=== PATIENT | female | born 1950 | race Caucasian/White ===

== ENCOUNTER → 2019-09-19 | Outpatient (CLI) | payer MEDICARE ==
--- NOTE | 2019-09-19 14:31 | XR ---
Left knee HISTORY: Left knee pain 2 views of left knee. Vascular calcifications are present. There is tricompartmental marginal spurring. Joint space loss pr esent at the patellofemoral joint and medial compartment. Alignment is maintained. Bone mineralizatio n is reduced. No fracture or dislocation. Additional soft tissue calcifications may represent phlebol iths and are indeterminate. IMPRESSION: Osteoarthritis. Additional findings above.
== END | disposition home or self-care (01) ==
LOC: RADXRYALE 11:04
PROVIDERS: ATTEND Internal Medicine
DX: M17.12 Unilateral primary osteoarthritis, left knee (principal); M25.862 Other specified joint disorders, left knee

== ENCOUNTER → 2022-07-14 | Outpatient (CLI) | payer MEDICARE ==
--- NOTE | 2022-07-14 12:06 | XR ---
The most echo spine HISTORY: Chronic pain down both hips and legs 5 views of lumbosacral spine, correlation to CT scan abdomen and pelvis 05/02/2014 Anterolisthesis grade 1 L4-5. Loss of disc height is present at intervertebral levels. Vacuum phenome non present at L4-5, mild anterolisthesis grade 1 L5-S1. Lumbar vertebral bodies show preserved heigh t. Bone mineralization is reduced. Sclerosis in the posterior elements is consistent with facet arthr opathy. Atherosclerotic vascular calcifications present in the aorta iliac distribution. No evident s pondylolysis. IMPRESSION: Degenerative disc disease, facet arthropathy, osteopenia.
== END | disposition home or self-care (01) ==
LOC: RADXRYALE 11:40
PROVIDERS: ATTEND Internal Medicine
DX: G57.03 Lesion of sciatic nerve, bilateral lower limbs (principal)
CPT/HCPCS: 72110

== ENCOUNTER → 2022-08-24 | Outpatient (CLI) | payer MEDICARE ==
--- NOTE | 2022-08-24 15:08 | MR ---
EXAMINATION TYPE: MR lumbar spine wo con DATE OF EXAM: 08/24/2022 COMPARISON: None HISTORY: Low back pain into legs Multiplanar multi echo imaging of the lumbar spine performed without contrast. There is a 5 mm anterior subluxation of L4 in relation L5. There is severe narrowing of the spinal ca nal at L4-5 due to facet arthropathy and subluxation deformity. There is degenerative disc space narr owing throughout the lumbar spine. There is posterior small disc herniations from L1 to L5. No compre ssion fracture. No lumbar paraspinal mass. No evidence of focal bone destruction. IMPRESSION: Severe spinal stenosis at L4-5 due to spondylolisthesis and facet arthropathy and small disc herniati on. Multilevel spondylotic changes.
== END | disposition home or self-care (01) ==
LOC: RADMRIMAIN 14:25
PROVIDERS: ATTEND Orthopaedic Surgery
DX: M48.061 Spinal stenosis, lumbar region without neurogenic claudication (principal); M43.16 Spondylolisthesis, lumbar region; M47.816 Spondylosis without myelopathy or radiculopathy, lumbar region; M51.36 Other intervertebral disc degeneration, lumbar region
CPT/HCPCS: 72148

== ENCOUNTER → 2022-11-05 | Outpatient (CLI) | payer MEDICARE | END | disposition home or self-care (01) | LOC: LABPAT 12:35 | PROVIDERS: ATTEND Orthopaedic Surgery | DX: Z01.812 Encounter for preprocedural laboratory examination (principal); Z22.322 Carrier or suspected carrier of Methicillin resistant Staphylococcus aureus; M48.061 Spinal stenosis, lumbar region without neurogenic claudication; M47.816 Spondylosis without myelopathy or radiculopathy, lumbar region | CPT/HCPCS: 86850; 86900; 86901; 87070 ==

== ENCOUNTER → 2023-03-24 | Outpatient (CLI) | payer MEDICARE ==
--- NOTE | 2023-03-24 11:51 | XR ---
EXAMINATION TYPE: XR ribs bilat w pa chest xray DATE OF EXAM: 03/24/2023 COMPARISON: NONE HISTORY: Pain TECHNIQUE: PA view of the chest and AP views of the bilateral ribs submitted FINDINGS: Slight atherosclerotic change aorta and there is multilevel hypertrophic degenerative yepez e of the spine. Chronic deformity of the posterolateral right sixth rib. There are surgical change in volving the lumbar spine. No acute displaced rib fracture. The lungs are clear. No pleural effusion or pneumothorax. Hyperinflation suggests COPD. There is a sm all nodule in the left upper lobe. IMPRESSION: 1. No acute displaced rib fracture 2. Small nodule left upper lobe measuring [address] of the chest
== END | disposition home or self-care (01) ==
LOC: RADXRYALE 11:11
PROVIDERS: ATTEND Internal Medicine
DX: S23.41XA Sprain of ribs, initial encounter (principal); R91.1 Solitary pulmonary nodule
CPT/HCPCS: 71111

== ENCOUNTER → 2024-02-27 | Outpatient (CLI) | payer MEDICARE | END | disposition home or self-care (01) | LOC: LABWHC1 09:45 | PROVIDERS: ATTEND Orthopaedic Surgery | DX: Z01.812 Encounter for preprocedural laboratory examination (principal); M16.12 Unilateral primary osteoarthritis, left hip; Z22.322 Carrier or suspected carrier of Methicillin resistant Staphylococcus aureus | CPT/HCPCS: 36415; 86850; 86900; 86901; 87070 ==

== ENCOUNTER 2024-03-07 05:33 | Observation (INO) | payer MEDICARE ==
--- NOTE | 2024-03-06 12:26 | HP ---
HISTORY AND PHYSICAL Surgery is scheduled for 03/07/2024. HISTORY OF PRESENT ILLNESS: Ashlee Crandall is a 73-year-old patient seen with symptomatic left hip osteoarthritis. We discussed options regarding treatment. She elected to proceed with direct anterior left total hip arthroplasty. Consent regarding the procedure was obtained. Clearance was provided by Dr. Varghese's office and Dr. Gabriel's office. PAST MEDICAL HISTORY: Trr-[id number]-jchngpprw diabetes, hypertension, hyperlipidemia. PAST SURGICAL HISTORY: Cholecystectomy, total knee arthroplasty. DAILY MEDICATIONS: 1. Actos. 2. Lipitor. 3. Lisinopril. 4. Metformin. 5. Xarelto. 6. Ozempic. ALLERGIES: Aspirin, Motrin. SOCIAL HISTORY: She denies tobacco use. PHYSICAL EVALUATION OF THE LEFT HIP: She has limited range of motion with pain. Positive hip impingement sign. Straight- leg raise is negative. Her distal neurovascular exam is intact. IMAGING STUDIES: Radiographs of left hip revealed severe osteoarthritic changes. IMPRESSION: 1. Left hip osteoarthritis. 2. Hypertension. 3. Hyperlipidemia. 4. Qhn-hbirlpm-sgqviymuu diabetes. PLAN: Direct anterior left total hip arthroplasty. MMODL / IJN: [id number] /
[~2024-03-07 05:33] MED LIST: TRANEXAMIC 1,000 MG/100ML-NACL 1,000 MG in SALINE 1 100ML.BAG IVPB PRN
[2024-03-07] MEDS ORDERED: fentaNYL (PF) 50 MCG/ML 2 ML AMP IVP PRN (06:33)
[2024-03-07] MEDS ORDERED: MIDAZOLAM 2 MG/2 ML VIAL IV PRN (06:33)
[2024-03-07] MEDS ORDERED: LIDOCAINE 1% (10MG/ML) FOR IV START INTRADERMA PRN (06:33)
[2024-03-07] MEDS ORDERED: HYDROmorphone 0.5 MG/0.5 ML SYRINGE IVP PRN ×3 (06:33→09:49)
[2024-03-07] MEDS: ACETAMINOPHEN TAB 500 MG TAB PO PRN (06:41)
[2024-03-07 07:06] LABS: Glucose,Whole Blood 170 mg/dL (70-110)
[2024-03-07] MEDS: DEXAMETHASONE SOD PHOSPHATE 4 MG/ML 1 ML VIAL IV ONE (07:07)
[2024-03-07] MEDS: ONDANSETRON 4 MG/2 ML VIAL IVP ONE (07:07)
[2024-03-07] MEDS: LACTATED RINGERS 1,000 ML IV SCH (07:08)
[2024-03-07] MEDS: IV FLUID CONTINUATION 1,000 ML IV ONE (07:09)
[2024-03-07] MEDS: MIDAZOLAM 2 MG/2 ML VIAL IVP ONE (07:16)
[2024-03-07] MEDS: fentaNYL (PF) 50 MCG/ML 2 ML AMP IVP ONE (07:17)
[2024-03-07] MEDS ORDERED: PROPOFOL 10 MG/ML 20 ML VIAL IV ONE (07:21)
[2024-03-07] MEDS ORDERED: LIDOCAINE 1% INJ 10MG/ML (20 ML MDV) ONE (07:21)
[2024-03-07] MEDS ORDERED: fentaNYL (PF) 50 MCG/ML 2 ML AMP ONE (07:21)
[2024-03-07] MEDS ORDERED: TRANEXAMIC 1,000 MG/100ML-NACL PREMIX BAG ONE (07:21)
[2024-03-07] MEDS ORDERED: ROPIVACAINE 5 MG/ML 30 ML VIAL ONE (07:21)
[2024-03-07] MEDS ORDERED: SUCCINYLCHOLINE CHLORIDE 200 MG/10 ML VIAL IV ONE (07:21)
[2024-03-07] MEDS ORDERED: KETAMINE HCL IN 0.9 % NACL 50 MG/5 ML SYRINGE ONE (07:21)
[2024-03-07] MEDS ORDERED: HYDROmorphone (PF) 1 MG/ML ONE (07:21)
--- NOTE | 2024-03-07 07:44 | P.ANPRN ---
Procedure Note - Anesthesia - Nerve Block Performed Left Carlo Single Time Out Performed: Yes Date of Procedure: 03/07/24 Procedure Start Time: 07:16 Procedure Stop Time: 07:22 Location of Patient: PreOp Indication: Acute Post-Operative Pain, Requested by Surgeon Sedation Type: Sedate with meaningful contact maintained Position: Supine Needle Types: Pajunk Needle Gauge: 21 Ultrasound used to visualize needle placement: Yes Ultrasound used to observe medication spread: Yes Injectate: 0.5% Ropivacaine (see comment for volume) (15 ml + 15 ml lidocaine 1% with epi 1/200 k) Blood Aspirated: No Pain Paresthesia on Injection Noted: No Resistance on Injection: Normal Image Stored and Saved: Yes Events: Uneventful and Well Tolerated
[2024-03-07] MEDS: ceFAZolin 1,000 MG in SODIUM CHLORIDE 0.9% 1,000 ML IRRIGATION ONE (07:57)
--- NOTE | 2024-03-07 09:44 | FL ---
EXAMINATION TYPE: FL guidance operating room, XR Hip Limited LT Intraoperative/procedural fluoroscopi c services were provided. Total fluoroscopy time is 1 minute 19 seconds seconds with a total of 8 sub mitted images to PACS. Please see the operative/procedural note for further details. DAP: 33.435 Gycm2
--- NOTE | 2024-03-07 09:48 | P.OP ---
Date of Procedure: 03/07/24 Preoperative Diagnosis: Left hip osteoarthritis Postoperative Diagnosis: Left hip osteoarthritis Procedure(s) Performed: Direct anterior left total hip arthroplasty Implants: 1. DePuy Corail 125 degree standard collar size 13 press-fit femoral stem 2. DePuy Tob[place]anna 50 mm press-fit acetabular shell 3. DePuy bi-mentum altrx liner 43/22 4. DePuy articular lease femoral head 12/14 taper +4 5. DePuy [place] dual mobility liner 50/43 Anesthesia: ELIANEA Surgeon: Robbie Adams It Audit Manager #1: Davis Lorenzo Estimated Blood Loss (ml): 65 Pathology: none sent Condition: stable Disposition: PACU Indications for Procedure: 73-year-old patient seen with symptomatic left hip osteoarthritis. After treatment options were discussed, she elected to proceed with direct anterior left total hip arthroplasty. Operative Findings: See description of procedure Description of Procedure: The patient was taken to the operative suite. Patient underwent a general anesthetic by the department of anesthesia. Patient was then transferred to the [place] table. Patient was given preoperative IV antibiotics and TXA. Both lower extremities were placed in standard leg spars. The hip was then prepped and draped in the normal sterile orthopedic fashion. A standard anterior incision was made beginning 3 cm lateral and 1 cm distal to the ASIS extending 10 cm. Dissection was then carried down through the subcutaneous soft tissues down to the fascia overlying the tensor fascia tanya. An incision was now made through the fascia. Careful dissection was taken down exposing the tensor fascia tanya muscle. A Cobra retractor was now placed along the medial femoral neck and a second one along the lateral femoral neck. The venous circumflex vessels were now identified, cauterized and clipped. We identified the anterior hip capsule. An incision was made through the hip capsule along the lateral border. I performed a partial anterior capsulectomy. Retractors were now placed around the femoral neck itself. A femoral neck cut was now made with a sagittal saw. It was completed with an osteotome at the lateral neck area. The femoral head was now removed without difficulty. The extremity was now rotated to 60 of external rotation. It was locked in position. Residual labrum was now debrided out. Serial reaming was performed of the acetabulum while David CUNNINGHAM assisted holding an anterior retractor for exposure. Once we reached the appropriate size and a trial was position and fit nicely. The appropriate size was now chosen opened and made available. It was introduced into the acetabulum without difficulty. The C-arm/fluoroscopy was now brought into the operative field. We made sure we had a true AP pelvic view. We now under direct C- arm/fluoroscopy introduced into the acetabular component with appropriate version and inclination. I held the cup in appropriate position MARISA Moss malleted the cup in position. It was not sticking. I pulled the cup out. I now chose a multihole cup. The acetabular cup was now placed back into the acetabulum. I now drilled multiple holes in introduced multiple 6.5 cancellous screws which had good bite and purchase. We confirmed this on intraoperative fluoroscopic imaging. We now placed our by mentum liner in anticipation of a dual mobility hip given her significant multilevel lumbar fusion. At this point retractors were removed. The extremity was now placed into 130 external rotation with no traction. The leg was now dropped to the ground and adducted. Appropriate retractors were now positioned along the proximal femur. We also placed our femoral look into position. Additional capsular releasing was performed to gain access to the proximal femur. We now used a box osteotome. A canal finder was now utilized. Serial broaching was now performed with the assistance of Davis CUNNINGHAM tapping the broaches down with a mallet while held the broach in appropriate rotation and position. I noted his the posterior aspect of the proximal femur was very very soft and I was concerned regarding a possible future fracture there. I decided to prophylactically place a cable around this area. I placed a cable on the proximal calcar secured and clipped it. We now dropped leg down and resumed our broaching. I did use a canal reamer again given that posterior proximal cortex was soft and wanted to avoid any excessive broaching. I resumed broaching. This was done until we reached the appropriate size with good overall rotational stability. Appropriate calcar planing was performed. A trial head/neck was placed into position. The hip was now reduced. The C-arm/fluoroscopy was brought back into the operative field. A spot film was obtained of the nonoperative hip. A spot film was obtained of the trial components. Overlays were performed, we noted good overall alignment and positioning for determining leg length. The C-arm/fluoroscopy was pulled back. Retractors were repositioned and the hip was dislocated. The leg was again taken down to the ground and adducted. Appropriate retractors were repositioned as well as the femoral hook. All trial components were removed. The femoral implant was opened along with the femoral head. The femoral implant was introduced on the appropriate handle into our pre-broached area. I held the component position while Davis CUNNINGHAM used a mallet to seat the femoral component. The femoral component was now noted to be well seated and stable.. The dual mobility femoral head was introduced with good positioning and fixation noted. Retractors were now removed. The hip was now reduced. There appeared be good positioning of the hip confirmed on intraoperative fluoroscopy. Spot films were obtained to document this. A second gram of TXA was given. The deep and superficial soft tissues were infiltrated with local analgesic. Bipolar cautery had been utilized intermittently through the procedure for hemostasis. The wound was irrigated copiously with pulse lavage mechanical irrigation. The fascia was repaired with Vicryl suture. The subcutaneous soft tissues were repaired in layers with Vicryl suture. The skin was approximated with pernio/Dermabond. Sterile dressings were applied. Patient was then awakened, transferred to a bed and taken to recovery in stable condition. Davis CUNNINGHAM assisted with the complex procedure.
[2024-03-07] MEDS ORDERED: HYDROcodone/APAP 5-325MG 1 EACH TAB PO PRN (09:49)
[2024-03-07] MEDS ORDERED: ONDANSETRON 4 MG/2 ML VIAL IVP PRN (09:49)
[2024-03-07] MEDS ORDERED: HYDROcodone/APAP 7.5-325MG 1 EACH TAB PO PRN (09:49)
[2024-03-07] MEDS ORDERED: NALOXONE 0.4 MG/ML 1 ML VIAL IV PRN (09:49)
[2024-03-07] MEDS: Pre Op ABX Message 1 EACH MISC MISCELLANE ONE (11:06)
[2024-03-07] MEDS: SODIUM CHLORIDE 0.9% 1,000 ML IV SCH (11:06)
[2024-03-07 11:27] LABS: Glucose,Whole Blood 235 mg/dL (70-110)
[2024-03-07] MEDS: INSULIN ASPART (NovoLOG) 100 UNIT/ML VIAL SQ ONE (11:35)
[2024-03-07] MEDS ORDERED: traMADol 50 MG TAB PO SCH (13:00)
[2024-03-07] MEDS ORDERED: ALBUTEROL NEBULIZED 2.5 MG/3 ML INHALATION PRN (13:34)
[2024-03-07] MEDS ORDERED: DEXTROSE 50% SYRINGE 50 ML IVP PRN ×2 (13:35)
[2024-03-07] MEDS ORDERED: traMADol 50 MG TAB ONE (13:45)
[2024-03-07] MEDS: HYDROmorphone 0.5 MG/0.5 ML SYRINGE IVP PRN (19:35)
--- NOTE | 2024-03-07 19:58 | CONS ---
CONSULTATION REASON FOR CONSULTATION: Advice regarding diabetes and other medical issues, requested by Orthopedics. HISTORY OF PRESENT ILLNESS: This is a 73-year-old woman with a past medical history of multiple medical problems including diabetes, underwent left total hip joint arthroplasty. There is no history of any fever, rigors, or chills. Accu-Cheks are in 235 at this time. PAST MEDICAL HISTORY: Reviewed include asthma, COPD, diabetes mellitus. Rest of the history and chart is also reviewed. HOME MEDICATIONS: Reviewed include metformin. Dose and rest of medications reviewed. ALLERGIES: Reviewed include aspirin. FAMILY HISTORY: History of melanoma. SOCIAL HISTORY: Previous history of smoking. REVIEW OF SYSTEMS: Fourteen-point review is negative except as mentioned earlier. PHYSICAL EXAMINATION: VITAL SIGNS: Pulse is 80, blood pressure 152/57, respirations 20. HEENT: Conjunctivae normal. NECK: No JVD. CARDIOVASCULAR: S1, S2. RESPIRATIONS: Breath sounds diminished at the bases. ABDOMEN: Soft, nontender. LEGS: No edema. NERVOUS SYSTEM: Nonfocal. LABORATORY DATA: Noted. ASSESSMENT: 1. Status post left hip arthroplasty. 2. Diabetes mellitus, type 2. 3. Asthma. 4. Chronic obstructive pulmonary disease. 5. Deep venous thrombosis history. 6. Hypertension. 7. Hyperlipidemia. RECOMMENDATIONS AND DISCUSSION: Recommend to continue current management and continue symptomatic treatment. Otherwise, at this time, monitor blood sugars closely. The patient is started on Lovenox. I would recommend transfusion to the home dose of Xarelto when appropriate. Otherwise, we will continue to monitor. Otherwise, closely follow up with primary physician in the outpatient setting. MMODL / IJN: [id number] /
[2024-03-07 21:00] LABS: Glucose,Whole Blood 223 mg/dL (70-110)
[2024-03-07] MEDS: ACETAMINOPHEN TAB 325 MG TAB PO SCH (21:41)
[2024-03-07] MEDS: metFORMIN 500 MG TAB PO SCH (21:48)
[2024-03-07] MEDS: traMADol 50 MG TAB PO PRN (21:49)
[2024-03-07] MEDS: SENNOSIDES-DOCUSATE SODIUM 1 EACH TAB PO SCH (21:49)
[2024-03-07] MEDS: ATORVASTATIN 10 MG TAB PO SCH (21:49)
[2024-03-07] MEDS: INSULIN ASPART (NovoLOG) 100 UNIT/ML VIAL SQ SCH (21:50)
[2024-03-08 06:15] LABS: Glucose,Whole Blood 253 mg/dL (70-110)
[2024-03-08] MEDS: ENOXAPARIN 40 MG/0.4 ML SYRINGE SQ SCH (08:17)
[2024-03-08] MEDS: VENLAFAXINE HCL ER 75 MG CAP PO SCH (08:17)
[2024-03-08] MEDS: PANTOPRAZOLE 40 MG TABLET PO SCH (08:17)
[2024-03-08] MEDS: FERROUS SULFATE 325 MG TAB PO SCH (08:18)
[2024-03-08] MEDS: FAMOTIDINE 20 MG TAB PO SCH (08:18)
[2024-03-08] MEDS: LORATADINE 10 MG TAB PO SCH (08:18)
[2024-03-08] MEDS: LISINOPRIL-HCTZ 10-12.5 MG 1 EACH TAB PO SCH (08:18)
[2024-03-08] MEDS: PIOGLITAZONE 15 MG TAB PO SCH (08:20)
[2024-03-08 08:26] VITALS: BP 145/74; PULSE 101; RESP 17; TEMP 98.4
[2024-03-08 08:40] LABS: Basophils # (A) 0.02 X 10*3/uL (0.00-0.10); Basophils % (A) 0.2 %; Eosinophils # (A) 0.17 X 10*3/uL (0.04-0.35); Eosinophils % (A) 1.9 %; HCT 29.5 % (37.2-46.3); HGB 9.7 g/dL (12.0-15.0); Lymphocytes # (A) 2.34 X 10*3/uL (0.90-5.00); Lymphocytes % (A) 25.7 %; MCH 32.1 pg (27.0-32.0); MCHC 32.9 g/dL (32.0-37.0); MCV 97.7 FL (80.0-97.0); Mean Platelet Volume 9.9 FL (9.5-12.2); Monocytes # (A) 1.16 X 10*3/uL (0.20-1.00); Monocytes % (A) 12.7 %; NRBC Per 100 WBC 0 X 10*3/uL (0.00-0.01); Neutrophils # (A) 5.35 X 10*3/uL (1.80-7.70); Neutrophils % (A) 58.6 %; Platelet Count 211 X 10*3/uL (140-440); RBC 3.02 X 10*6/uL (4.10-5.20); RDW 13.4 % (11.5-14.5); WBC 9.12 X 10*3/uL (4.50-10.00)
--- NOTE | 2024-03-08 10:04 | P.DS ---
Providers Date of admission: 03/08/24 09:37 Expected date of discharge: 03/08/24 Attending physician: Robbie Adams Consults: 03/07/24 09:49 Consult Physician Routine Consulting Provider: Oren Brooks Consult Reason/Comments: Medical management Do you want consulting provider notified?: Yes Primary care physician: Callie Varghese Hospital Course: Date of admission: 03/07/2024 Date of discharge: 03/08/2024 Admission diagnosis: Left hip osteoarthritis Discharge diagnosis: Same Attending physician: Dr. Adams Surgical procedures: Direct anterior left total hip arthroplasty Brief history: Patient is a 73-year-old female with a history of progressive primary left hip osteoarthritis. At this point patient has failed conservative treatment measures and has opted to proceed with a elective direct anterior left total hip arthroplasty. Hospital course: Details of patient's surgery can be found in operative report. Patient tolerated the procedure well and was subsequently transported to orthopedic floor. Patient's orthopeidc and medical care was provided daily. Patient had daily laboratory tests performed for evaluation of overall blood counts. Patient had daily physical therapy to include strengthening range of motion as well as education with walker ambulation. Patient was treated with Lovenox for their postoperative DVT prophylaxis during their inpatient stay. Patient was noted to have a relatively uneventful postoperative course. Patient reported satisfactory pain control with oral pain medications by postoperative day 1. Patient showed satisfactory progress with physical therapy. Patient moved steadily through the program and had no difficulty meeting the goals by postoperative day 1. Given patient's otherwise satisfactory course and having m et physical therapy goals, plan is to discharge patient home with health services on postoperative day 1. Discharge condition/disposition: Patient will be discharged home with health services in stable condition. Discharge medications: Instructions are given on resumption of patient's normal daily medications per primary care recommendation; patient to resume tylenol and xarelto at home. Discharge instructions: 1. Wound care and infection precautions, keep incision dry and covered while showering, no lotions, creams, moisturizers. No soaking, tubs, pools, hottubs. Do not scrub over the incision. 2. Weight-bear as tolerated with walker / cane until follow-up. 3. Ice and elevate when necessary. Do not exceed 20 minutes per hour with ice pack. 4. Utilize compression sleeve until seen at first follow up appointment. 5. Visiting nursing care. 6. Home physical therapy 7. Pain meds and anticoagulants per prescription. 8. Pain medication has potential to cause constipation. Increase oral fluid and fiber intake. Contact primary care provider if you have not had a bowel movement within 48 hours after discharge 9. No anti-inflammatory medication until discussed at first post operative visit, this including Motrin, Aleve, Mobic, Diclofenac. 10. Follow up in office at 2 weeks postop with David Mansfield PA-C / Davis Lorenzo PA-C 11. Follow up with your primary care doctor 7-10 days after discharge. 12. Contact [facility] with any questions, . Assessment: Left hip osteoarthritis Procedures: Direct anterior left total hip arthroplasty Patient Condition at Discharge: Good Plan - Discharge Summary Discharge Rx Participant: No New Discharge Prescriptions: Continue Acetaminophen [Tylenol Arthritis] 1,300 mg PO BID Rivaroxaban [Xarelto] 20 mg PO DAILY No Action Albuterol Sulfate [Ventolin HFA] 1 - 2 puff INHALATION Q6H PRN PRN Reason: Shortness Of Breath Lisinopril-Hctz 10-12.5 mg [Zestoretic 10-12.5] 1 each PO DAILY metFORMIN HCL [Glucophage] 1,000 mg PO BID Omeprazole 20 mg PO DAILY Cranberry Fruit Extract [Cranberry] 500 mg PO DAILY Pioglitazone [Actos] 15 mg PO DAILY Fexofenadine HCl [Kady Allergy] 180 mg PO DAILY Ferrous Sulfate [Feosol] 325 mg PO DAILY Atorvastatin [Lipitor] 10 mg PO HS Venlafaxine HCl [Effexor XR] 75 mg PO DAILY Semaglutide [Ozempic] 1 mg SQ TU Discharge Medication List Albuterol Sulfate [Ventolin HFA] 1 - 2 puff INHALATION Q6H PRN 03/06/14 [History] Lisinopril-Hctz 10-12.5 mg [Zestoretic 10-12.5] 1 each PO DAILY 03/06/14 [History] Acetaminophen [Tylenol Arthritis] 1,300 mg PO BID 11/06/22 [History] Atorvastatin [Lipitor] 10 mg PO HS 11/06/22 [History] Cranberry Fruit Extract [Cranberry] 500 mg PO DAILY 11/06/22 [History] Omeprazole 20 mg PO DAILY 11/06/22 [History] Pioglitazone [Actos] 15 mg PO DAILY 11/06/22 [History] Rivaroxaban [Xarelto] 20 mg PO DAILY 11/06/22 [History] metFORMIN HCL [Glucophage] 1,000 mg PO BID 11/06/22 [History] Ferrous Sulfate [Feosol] 325 mg PO DAILY 03/02/24 [History] Fexofenadine HCl [Kady Allergy] 180 mg PO DAILY 03/02/24 [History] Semaglutide [Ozempic] 1 mg SQ TU 03/02/24 [History] Venlafaxine HCl [Effexor XR] 75 mg PO DAILY 03/02/24 [History] Follow up Appointment(s)/Referral(s): Kane Mansfield PAC [PHYSICIAN METAL TRIMMER] - 03/25/24 10:40 am Patient Instructions/Handouts: Anterior Hip Replacement (DC), Anterior Hip Replacement (GEN) Activity/Diet/Wound Care/Special Instructions: Orthopedic Discharge Instructions: 1. Wound care and infection precautions, keep incision dry and covered while showering, no lotions, creams, moisturizers. No soaking, pools, hot tubs. Do not scrub over incision. 2. Weight-bear as tolerated with walker / cane until follow-up. 3. Ice and elevate when necessary. Do not exceed 20 minutes per hour with ice pack. 4. Utilize compression sleeve until seen at first follow up appointment. 5. Pain meds and anticoagulants per prescription. 6. Pain medication has potential to cause constipation. Increase oral fluid and fiber intake. Contact primary care provider if you have not had a bowel movement within 48 hours after discharge. 7. No anti-inflammatory medication until discussed at first post operative visit, this including Motrin, Aleve, Mobic, Diclofenac. 8. Follow up in office at 2 weeks postop with David Mansfield PA-C / Davis Lorenzo PA-C 9. Follow up with your primary care doctor 7-10 days after discharge. 10. Contact [facility] with any questions, . Keep incision clean, dry, intact. While showering, cover silver foam dressing with Saran wrap. Keep silver foam dressing on until 03/14/2024. Once dressing is removed, it is okay to shower directly over incision. Discharge Disposition: HOME WITH HOME HEALTH SERVICES
--- NOTE | 2024-03-08 10:17 | P.PN ---
Subjective Progress Note Date: 03/08/24 Principal diagnosis: Left hip osteoarthritis Patient was seen at bedside this morning lying Psorcon position with dressing present over left hip. Patient says she just finished working with therapy and was able to walk down the stairs without issue. Patient says she does have a walker and cane at home. Patient says she has urinated since surgery without issue. Patient says she has not had a bowel yet, however, patient says she has been passing gas. Patient denies chest pain, fever, shortness of breath, nausea, vomiting, change in vision, loss of bowel/bladder control. Objective - Vital Signs Vital signs: Vital Signs Temp 98.4 F 03/08/24 06:45 Pulse 101 H 03/08/24 06:45 Resp 17 03/08/24 06:45 BP 145/74 03/08/24 06:45 Pulse Ox 96 03/08/24 06:45 FiO2 Intake & Output 03/07/24 03/08/24 03/08/24 18:59 06:59 18:59 Intake Total 1251 Output Total 1015 Balance 236 Weight 77.8 kg Intake: IV 1051 Oral 200 Output: Urine 950 Estimated Blood Loss 65 Other: Voiding Method Toilet # Voids 3 - Exam Left hip: Incision is clean, dry, and intact. The silver foam dressing is in good condition. There is minimal soft tissue swelling and ecchymosis surrounding the medial and lateral aspects of the incision. Calf is soft, no tenderness with palpation. Plantar flexion, dorsiflexion, EHL, FHL are intact. Sensory exam to light touch throughout the extremity is intact, dorsal pedis pulses 2+. - Labs CBC & Chem 7: 03/08/24 04:53 Labs: Abnormal Lab Results - Last 24 Hours (Table) 03/07/24 03/07/24 03/08/24 Range/Units 11:22 20:57 04:53 RBC (4.10-5.20) X 10*6/uL Hgb (12.0-15.0) g/dL Hct (37.2-46.3) % MCV (80.0-97.0) FL MCH (27.0-32.0) pg Immature Gran # (0.00-0.04) X 10*3/uL Monocytes # (0.20-1.00) X 10*3/uL POC Glucose (mg/dL) 235 H 223 H (70-110) mg/dL Hemoglobin A1c 6.9 H (<=6.0) % 03/08/24 03/08/24 Range/Units 04:53 06:13 RBC 3.02 L (4.10-5.20) X 10*6/uL Hgb 9.7 L (12.0-15.0) g/dL Hct 29.5 L (37.2-46.3) % MCV 97.7 H (80.0-97.0) FL MCH 32.1 H (27.0-32.0) pg Immature Gran # 0.08 H (0.00-0.04) X 10*3/uL Monocytes # 1.16 H (0.20-1.00) X 10*3/uL POC Glucose (mg/dL) 253 H (70-110) mg/dL Hemoglobin A1c (<=6.0) % Assessment and Plan Assessment: 1. Left hip osteoarthritis -Postop day 1 status post direct anterior left total hip arthroplasty Plan: 1. Left hip osteoarthritis -direct anterior left total hip arthroplasty form yesterday, 03/07/2024. Patient stable at bedside this morning with dressing present over left hip. Patient did do well with therapy this morning and was able to do stairs. Discharge home today with health services. 2. Appreciate medical management 3. Pain management -tramadol in hospital. Patient does have extreme Tylenol at home that she will be taking 4. DVT prophylaxis -Lovenox in hospital. Patient does normally take Xarelto at home and will resume Xarelto once home 5. GI prophylaxis -senna 6. PT/OT -weightbearing as tolerated with walker 7. Encourage incentive spirometer use 8. Discharge planning -home today with health services Time with Patient: Less than 30
--- NOTE | 2024-03-08 11:06 | P.PN ---
Subjective Patient is a pleasant 73 years old female with past medical history of severe osteoarthritis She is status post total left hip arthroplasty. Today's postop day #1 Patient doing well in bed, she is awake alert denies chest pain or dyspnea. No abdominal pain. Does not have bowel movement yet. It looks like her pain is controlled She is hemodynamically stable, mildly tachycardic Labs reviewed showing normal WBC 9.1 and platelet count 212 Anemia with hemoglobin slightly low at 9.5. Glucose control and hemoglobin A1c 6.9% Patient currently on normal saline 50 mL/h Objective - Vital Signs Vital signs: Vital Signs Temp 98.4 F 03/08/24 06:45 Pulse 101 H 03/08/24 08:00 Resp 17 03/08/24 08:00 BP 145/74 03/08/24 06:45 Pulse Ox 96 03/08/24 06:45 FiO2 Intake & Output 03/07/24 03/08/24 03/08/24 18:59 06:59 18:59 Intake Total 1251 Output Total 1015 Balance 236 Weight 77.8 kg Intake: IV 1051 Oral 200 Output: Urine 950 Estimated Blood Loss 65 Other: Voiding Method Toilet Toilet # Voids 3 - Exam GENERAL: The patient is alert and oriented x3, not in any acute distress. Well developed, well nourished. HEENT: Pupils are round and equally reacting to light. EOMI. No scleral icterus. No conjunctival pallor. Normocephalic, atraumatic. No pharyngeal erythema. No thyromegaly. CARDIOVASCULAR: S1 and S2 present. No murmurs, rubs, or gallops. PULMONARY: Chest is clear to auscultation, no wheezing , no crackles. ABDOMEN: Soft, nontender, nondistended, normoactive bowel sounds. No palpable organomegaly. MUSCULOSKELETAL: No joint swelling or deformity. -EXTREMITIES: No cyanosis, clubbing, or pedal edema. Left hip surgical wound with dressing in place, rest of exam deferred to surgery team NEUROLOGICAL: Gross neurological examination did not reveal any focal deficits. SKIN: No rashes. no petechiae. - Labs CBC & Chem 7: 03/08/24 04:53 Labs: Abnormal Lab Results - Last 24 Hours (Table) 03/07/24 03/07/24 03/08/24 Range/Units 11:22 20:57 04:53 RBC (4.10-5.20) X 10*6/uL Hgb (12.0-15.0) g/dL Hct (37.2-46.3) % MCV (80.0-97.0) FL MCH (27.0-32.0) pg Immature Gran # (0.00-0.04) X 10*3/uL Monocytes # (0.20-1.00) X 10*3/uL POC Glucose (mg/dL) 235 H 223 H (70-110) mg/dL Hemoglobin A1c 6.9 H (<=6.0) % 03/08/24 03/08/24 Range/Units 04:53 06:13 RBC 3.02 L (4.10-5.20) X 10*6/uL Hgb 9.7 L (12.0-15.0) g/dL Hct 29.5 L (37.2-46.3) % MCV 97.7 H (80.0-97.0) FL MCH 32.1 H (27.0-32.0) pg Immature Gran # 0.08 H (0.00-0.04) X 10*3/uL Monocytes # 1.16 H (0.20-1.00) X 10*3/uL POC Glucose (mg/dL) 253 H (70-110) mg/dL Hemoglobin A1c (<=6.0) % Assessment and Plan Assessment: Osteoarthritis s/p left total hip arthroplasty Postop anemia, mild and expected Mild tachycardia secondary to above expected Hypertension, currently blood pressure controlled Obesity with BMI of 33.5 Plan: Continue with antihypertensive medication Continue with insulin and glucose monitoring May discontinue IV normal saline Encourage oral hydration GI and DVT prophylaxis deferred to surgery team Recommend patient follow-up with PCP and 1 week after discharge Patient is medically stable Thank you for consulting us
[2024-03-08 11:19] LABS: Glucose,Whole Blood 273 mg/dL (70-110)
== END 2024-03-08 13:26 | disposition home health service (06) ==
LOC: OR 05:33 → 4SSUR 10:02 → OR 03-08 09:37 → 4SSUR 03-08 09:37
PROVIDERS: ADMIT Orthopaedic Surgery; ATTEND Orthopaedic Surgery
DX: M16.12 Unilateral primary osteoarthritis, left hip (principal); D62 Acute posthemorrhagic anemia; E11.9 Type 2 diabetes mellitus without complications; I10 Essential (primary) hypertension; J44.89 Other specified chronic obstructive pulmonary disease; D68.51 Activated protein C resistance; K21.9 Gastro-esophageal reflux disease without esophagitis; E78.00 Pure hypercholesterolemia, unspecified; E66.9 Obesity, unspecified; Z68.33 Body mass index [BMI] 33.0-33.9, adult; F32.A Depression, unspecified; F41.9 Anxiety disorder, unspecified; F17.210 Nicotine dependence, cigarettes, uncomplicated; Z79.01 Long term (current) use of anticoagulants; Z79.85 Long-term (current) use of injectable non-insulin antidiabetic drugs; Z79.84 Long term (current) use of oral hypoglycemic drugs; Z79.899 Other long term (current) drug therapy; Z88.6 Allergy status to analgesic agent; Z88.8 Allergy status to other drugs, medicaments and biological substances; Z86.718 Personal history of other venous thrombosis and embolism; Z86.711 Personal history of pulmonary embolism
CPT/HCPCS: 27130; 97161; 64447; 85025; 83036; 73501; G0378; C1713; C1776; J2250; J0330; J1100; J0690 ×3; J2405; J2001; J3010; J1170 ×3; J2795; J2704

== ENCOUNTER 2025-01-09 20:07 | Emergency (ER) | payer MEDICARE ==
[2025-01-09 20:14] VITALS: RESP 18
--- NOTE | 2025-01-09 20:21 | ED ---
Fall HPI - General Chief Complaint: Fall Stated Complaint: Fall Time Seen by Provider: 01/09/25 20:11 Source: EMS, RN notes reviewed, old records reviewed Mode of arrival: EMS Limitations: no limitations - History of Present Illness Initial Comments: This is a 74 female to ER after a fall fall with positive head injury no loss of consciousness no neck pain currently does have right hand pain. Fall was mechanical in nature did miss a step no loss of consciousness no headache chest pain shortness breath or abdominal pain prior to the fall patient is on Xarelto, so head injury on blood thinners Complaint: fall -: hour(s) Fall From: wheelchair When Fall Occurred: 1 hour [employer] Fall Witnessed: yes, by family Place Fall Occurred: home Loss of Consciousness: none Prolonged Down Time?: no Symptoms Prior to Fall: none Location: head Location - Extremities: Left: Hand, Right: Hand Severity: moderate Context: tripped/slipped Associated Symptoms: headache - Related Data Home Medications Medication Instructions Recorded Confirmed Albuterol Sulfate [Ventolin HFA] 2 puff INHALATION RT-Q4H PRN 03/06/14 01/09/25 Lisinopril-Hctz 10-12.5 mg 1 each PO DAILY 03/06/14 01/09/25 [Zestoretic 10-12.5] Cranberry Fruit Extract [Cranberry] 500 mg PO DAILY 11/06/22 01/09/25 Pioglitazone [Actos] 15 mg PO DAILY 11/06/22 01/09/25 Rivaroxaban [Xarelto] 20 mg PO DAILY 11/06/22 01/09/25 metFORMIN HCL [Glucophage] 1,000 mg PO BID 11/06/22 01/09/25 Ferrous Sulfate [Feosol] 325 mg PO DAILY 03/02/24 01/09/25 Fexofenadine HCl [Kady Allergy] 180 mg PO DAILY 03/02/24 01/09/25 Ascorbic Acid [Vitamin C] 1,000 mg PO DAILY 01/09/25 01/09/25 Atorvastatin [Lipitor] 10 mg PO HS 01/09/25 01/09/25 Ergocalciferol (Vitamin D2) 1,250 mcg PO Q30D 01/09/25 01/09/25 [Drisdol (50,000 Iu)] Venlafaxine HCl [Effexor XR] 150 mg PO HS 01/09/25 01/09/25 Allergies Allergy/AdvReac Type Severity Reaction Status Date / Time aspirin Allergy Rash/Hives, Verified 01/09/25 20:53 facial and tongue swelling ibuprofen [From Motrin] Allergy Rash/Hives, Verified 01/09/25 20:53 facial and tongue swelling NSAIDS (Non-Steroidal Allergy Rash/Hives, Verified 01/09/25 20:53 Anti-Inflamma facial and tongue swelling dapagliflozin [From Farxiga] AdvReac Severe UTI's Verified 01/09/25 20:53 Review of Systems ROS Statement: Those systems with pertinent positive or pertinent negative responses have been documented in the HPI. ROS Other: All systems not noted in ROS Statement are negative. Past Medical History Past Medical History: Asthma, COPD, Diabetes Mellitus, Deep Vein Thrombosis (DVT), GERD/Reflux, Hyperlipidemia, Hypertension, Osteoarthritis (OA), Pulmonary Embolus (PE) Additional Past Medical History / Comment(s): leiden factor 5., hx of blood clot left femoral artery and PE., frequent diarrhea since gall bladder removed. type 2 diabetes. History of Any Multi-Drug Resistant Organisms: None Reported Past Surgical History: Cholecystectomy, Joint Replacement Additional Past Surgical History / Comment(s): total right knee, D&C, ectopic x2., fallopian tube removed, cataracts, eye lift, L hip replacement Past Anesthesia/Blood Transfusion Reactions: No Reported Reaction Additional Past Anesthesia/Blood Transfusion Reaction / Comment(s): hx of blood transfusion (no reaction) Past Psychological History: No Psychological Hx Reported Smoking Status: Current every day smoker Past Alcohol Use History: None Reported Past Drug Use History: None Reported - Past Family History Son(s) Family Medical History: Cancer Additional Family Medical History / Comment(s): passed from melanoma Mother Family Medical History: Blood Disorder, Deep Vein Thrombosis (DVT) Additional Family Medical History / Comment(s): leiden factor 5 General Exam Limitations: no limitations General appearance: alert, in no apparent distress Head exam: Present: atraumatic, normocephalic, normal inspection Eye exam: Present: normal appearance, PERRL, EOMI. Absent: scleral icterus, conjunctival injection, periorbital swelling ENT exam: Present: normal exam, mucous membranes moist Neck exam: Present: normal inspection. Absent: tenderness, meningismus, lymphadenopathy Respiratory exam: Present: normal lung sounds bilaterally. Absent: respiratory distress, wheezes, rales, rhonchi, stridor Cardiovascular Exam: Present: regular rate, normal rhythm, normal heart sounds. Absent: systolic murmur, diastolic murmur, rubs, gallop, clicks GI/Abdominal exam: Present: soft, normal bowel sounds. Absent: distended, tenderness, guarding, rebound, rigid Extremities exam: Present: normal inspection, full ROM, normal capillary refill. Absent: tenderness, pedal edema, joint swelling, calf tenderness Back exam: Present: normal inspection Neurological exam: Present: alert, oriented X3, CN II-XII intact Psychiatric exam: Present: normal affect, normal mood Skin exam: Present: warm, dry, intact, normal color. Absent: rash Course Vital Signs 01/09/25 01/09/25 20:09 21:50 Temperature 98.2 F 98.0 F Pulse Rate 87 76 Respiratory 18 18 Rate Blood Pressure 179/66 186/89 O2 Sat by Pulse 99 99 Oximetry - Reevaluation(s) Reevaluation #1: Medical records reviewed Reevaluation #2: Patient's symptoms improved Reevaluation #3: Patient informed of results questions answered Reevaluation #4: Was pt. sent in by a medical professional or institution (, PA, [employer]VE[employer], urgent care, hospital, or fdc...) When possible be specific @ -no Did you speak to anyone other than the patient for history (EMS, parent, family, police, friend...)? What history was obtained from this source @ -no Did you review nursing and triage notes (agree or disagree)? Why? @ -agree Are old charts reviewed (outside hosp., previous admission, EMS record, old EKG, old radiological studies, urgent care reports/EKG's, fdc records)? Report findings @ -yes Differential Diagnosis (chest pain, altered mental status, abdominal pain women, abdominal pain men, vaginal bleeding, weakness, fever, dyspnea, syncope, headache, dizziness, GI bleed, back pain, seizure, CVA, palpatations, mental health, musculoskeletal)? @ -prior EKG interpreted by me (3pts min.). @ -no X-rays interpreted by me (1pt min.). @ -yes negative for acute disease CT interpreted by me (1pt min.). @ -Yes negative for acute disease U/S interpreted by me (1pt. min.). @ -no What testing was considered but not performed or refused? (CT, X-rays, U/S, labs)? Why? @ -none What meds were considered but not given or refused? Why? @ -none Did you discuss the management of the patient with other professionals (professionals i.e. Dr., PA, [employer], lab, RT, psych nurse, social studies teacher, floor refinisher, teacher, u[employer] revenue officer, case packer and sealer)? Give summary @ -no Was smoking cessation discussed for >3mins.? @ -no Was critical care preformed (if so, how long)? @ -no Were there social determinants of health that impacted care today? How? (Homelessness, low income, unemployed, alcoholism, drug addiction, transportation, low edu. Level, literacy, decrease access to med. care, [facility], rehab)? @ -none Was there de-escalation of care discussed even if they declined (Discuss DNR or withdrawal of care, Hospice)? DNR status @ -no What co-morbidities impacted this encounter? (DM, HTN, Smoking, COPD, CAD, Cancer, CVA, ARF, Chemo, Hep., AIDS, mental health diagnosis, sleep apnea, morbid obesity)? @ -none Was patient admitted / discharged? Hospital course, mention meds given and route, prescriptions, significant lab abnormalities, going to OR and other pertinent info. @ - 74 female fall fall with head injury head injury no acute traumatic injury, patient is in no distress able to ambulate can be discharged home Discharge Undiagnosed new problem with uncertain prognosis? @ -no Drug Therapy requiring intensive monitoring for toxicity (Heparin, Nitro, Insulin, Cardizem)? @ -no Were any procedures done? @ -no Diagnosis/symptom? @ -Fall with head injury hand contusion Acute, or Chronic, or Acute on Chronic? @ -Acute Uncomplicated (without systemic symptoms) or Complicated (systemic symptoms)? @ -Complicated Side effects of treatment? @ -no Exacerbation, Progression, or Severe Exacerbation? @ -exacerbation Poses a threat to life or bodily function? How? (Chest pain, USA, AR, pneumonia, PE, COPD, DKA, ARF, appy, cholecystitis, CVA, Diverticulitis, Homicidal, Suicidal, threat to staff... and all critical care pts) @ -yes extremes of age Medical Decision Making - Medical Decision Making 74 female fall fall with head injury head injury no acute traumatic injury, patient is in no distress able to ambulate can be discharged home - Radiology Data Radiology results: report reviewed (CT brain C-spine x-ray hand negative for acute disease), image reviewed Disposition Clinical Impression: Fall, Head injury Disposition: HOME SELF-CARE Condition: Good Instructions (If sedation given, give patient instructions): Fall Prevention for Older Adults (ED), Head Injury (ED) Is patient prescribed a controlled substance at d/c from ED?: No Referrals: Callie Varghese MD [Primary Care Provider] - 1-2 days Time of Disposition: 21:00
--- NOTE | 2025-01-09 20:38 | CT ---
EXAMINATION TYPE: CT brain heri daugherty DATE OF EXAM: 01/09/2025 COMPARISON: NONE CLINICAL INDICATION: Female, 74 years old with history of fall, fall, on thinners, headache and neck pain. TECHNIQUE: CT scan of the head and cervical spine are performed without contrast. CT DLP: 1386.5 mGycm. Automated Exposure Control for Dose Reduction was Utilized. FINDINGS: There is no acute intracranial hemorrhage or midline shift identified. Mild ventricular a nd sulcal prominence. Moderate low-attenuation in the deep and periventricular white matter most like ly on the basis of chronic small vessel ischemic change in patient of this age. The calvarium is inta ct. Bilateral aphakia is seen. The visualized sinuses are clear. Cervical spine is visualized in its entirety from C1 through upper thoracic levels and demonstrates g rade 1 retrolisthesis C4 on C5 and grade 1 anterolisthesis C6 and C7 without evidence of acute fractu re or dislocation. Prevertebral soft tissue appears within normal limits. The C1-C2 articulation sh ows bilateral narrowing greater on the right. Vertebral body heights are maintained. Moderate to ping re disc space narrowing at C4-C5 and C5-C6 levels is present. Posterior spur disc complexes are effac ing the anterior thecal sac at these levels. Axial images show multilevel facet degenerative changes bilaterally causing multilevel bilateral neural foraminal narrowing. Lung apices show no pneumothorax . Thyroid gland is normal in size. Moderate to severe calcified plaque left carotid bulb. IMPRESSION: 1. There is no acute fracture or dislocation evident in the cervical spine. 2. No acute intracranial hemorrhage or midline shift is seen. [facility], , 01/09/2025 8:36 PM
--- NOTE | 2025-01-09 21:32 | XR ---
EXAMINATION TYPE: XR hand complete LT DATE OF EXAM: 01/09/2025 CLINICAL INDICATION: Female, 74 years old with history of pain, pain TECHNIQUE: Frontal, lateral and oblique images of the left hand are obtained. COMPARISON: None. FINDINGS: Osseous structures are demineralized. There is no acute fracture/dislocation evident in th e left hand. Moderate to severe narrowing throughout The DIP and PIP joints of the phalanges is prese nt. Moderate to severe degenerative change at the base of first metacarpal is identified. Overlying s oft tissue is unremarkable. IMPRESSION: As above. [facility], , 01/09/2025 9:30 PM
[2025-01-09 21:53] VITALS: BP 186/89; PULSE 76; TEMP 98
== END 2025-01-09 21:49 | disposition home or self-care (01) ==
LOC: EC 20:07
DX: S60.221A Contusion of right hand, initial encounter (principal); S09.90XA Unspecified injury of head, initial encounter; F17.200 Nicotine dependence, unspecified, uncomplicated; Z88.6 Allergy status to analgesic agent; Z88.8 Allergy status to other drugs, medicaments and biological substances; W19.XXXA Unspecified fall, initial encounter; Y92.009 Unspecified place in unspecified non-institutional (private) residence as the place of occurrence of the external cause
CPT/HCPCS: 70450; 72125; 99284